=== PATIENT | male | born 1970 | race Caucasian/White ===

== ENCOUNTER 2017-10-19 08:13 | Emergency (ER) | payer SELFPAY ==
[~2017-10-19] VITALS: Ht 165.1 cm; Wt 73.7 kg
[2017-10-19] MEDS ORDERED: DIPHTH,PERTUSS(ACELL),TET TOX 0.5 ML DISP.SYRIN. VAX IM ONE (08:30)
[2017-10-19] MEDS ORDERED: KETOROLAC 30 MG/ML VIAL. IV ONE (08:30)
[2017-10-19] MEDS ORDERED: HYDROmorphone PF 2 MG/ML VIAL ONE (08:58)
[2017-10-19] MEDS ORDERED: HYDROmorphone PF 2 MG/ML VIAL IM ONE (09:00)
[2017-10-19 09:01] LABS: BASO # 0.1 x10^3/uL (0.0-0.2); BASO % 1 % (0-3); EOS # 0.2 x10^3/uL (0.0-0.7); EOS % 2 % (0-3); HEMATOCRIT 38.3 % (39.0-53.0); HEMOGLOBIN 12.9 g/dL (13.0-17.5); LYMPH # 1.4 x10^3/uL (1.0-4.8); LYMPH % 13 % (24-48); MEAN CORPUSCULAR HEMOGLOBIN 29 pg (25-35); MEAN CORPUSCULAR HGB CONC 34 g/dL (31-37); MEAN CORPUSCULAR VOLUME 86 fL (79-100); MONO # 1.2 x10^3/uL (0.0-1.1); MONO % 11 % (0-9); NEUT # 8.4 x10^3uL (1.8-7.7); NEUT % 74 % (31-73); PLATELET COUNT 392 x10^3/uL (140-400); RED BLOOD COUNT 4.44 x10^6/uL (4.30-5.70); RED CELL DISTRIBUTION WIDTH 12.7 % (11.5-14.5); WHITE BLOOD COUNT 11.3 x10^3/uL (4.0-11.0)
[2017-10-19 09:08] LABS: CALCIUM 9.5 mg/dL (8.5-10.1); CREATININE 0.7 mg/dL (0.7-1.3); GFR 122.5
[2017-10-19 09:10] LABS: POTASSIUM 4.2 mmol/L (3.5-5.1)
[2017-10-19] MEDS ORDERED: CLINDAMYCIN 900MG PREMIX 50 ML IV ONE (09:15)
[2017-10-19] MEDS ORDERED: LIDOCAINE 1% Multi-Dose 20 ML VIAL. IJ ONE (09:15)
--- NOTE | 2017-10-19 09:20 | PHYS DOC ---
Past History Past Medical History: No Pertinent History Smoking: Non-smoker Alcohol Use: None Drug Use: None Adult General Chief Complaint Chief Complaint: LOWER EXT PAIN HPI HPI 46-year-old male patient without history of medical problems complaining of left knee erythema and pain and edema for one week and drainage of pus for the last 2 days with severe pain of his knee and limited range of flexion because of pain. Patient denies fever and chills, focal neuro deficit, injury, history of MRSA. Review of Systems Review of Systems Constitutional: Denies fever or chills [] Eyes: Denies change in visual acuity, redness, or eye pain [] HENT: Denies nasal congestion or sore throat [] Respiratory: Denies cough or shortness of breath [] Cardiovascular: No additional information not addressed in HPI [] GI: Denies abdominal pain, nausea, vomiting, bloody stools or diarrhea [] : Denies dysuria or hematuria [] Musculoskeletal: Denies back pain , reports joint pain [] Integument: Denies rash, reports skin erythema and abscess Neurologic: Denies headache, focal weakness or sensory changes [] Endocrine: Denies polyuria or polydipsia [] All other systems were reviewed and found to be within normal limits, except as documented in this note. Current Medications Current Medications Current Medications Medications (Trade) Dose Ordered Sig/Latia Start Time Stop Time Status Last Admin Dose Admin Clindamycin Phosphate 50 ml @ 100 mls/hr 1X ONCE 10/19/17 09:15 10/19/17 09:44 Diphtheria/ Tetanus/Acell Pertussis (Boostrix) 0.5 ml ONCE ONCE 10/19/17 08:30 10/19/17 09:00 DC Hydromorphone HCl (Dilaudid) 2 mg 1X ONCE 10/19/17 09:00 10/19/17 09:03 DC 10/19/17 09:02 2 MG Ketorolac Tromethamine (Toradol) 30 mg 1X ONCE 10/19/17 08:30 10/19/17 08:59 DC 10/19/17 08:51 30 MG Lidocaine HCl 20 ml 1X ONCE 10/19/17 09:15 10/19/17 09:16 DC Allergies Allergies Allergies Coded Allergies Type Severity Reaction Last Updated Verified No Known Drug Allergies 10/19/17 No Physical Exam Physical Exam Constitutional: Well developed, well nourished, moderate distress, non-toxic appearance. [] HENT: Normocephalic, atraumatic Eyes: PERRLA, EOMI, conjunctiva normal, no discharge. [] Neck: Normal range of motion, no tenderness, supple, no stridor. [] Cardiovascular:Heart rate regular rhythm, no murmur [] Lungs & Thorax: Bilateral breath sounds clear to auscultation [ Skin: Warm, dry, no erythema, no rash. Left knee abscess[] Back: No tenderness, no CVA tenderness. [] Extremities: Large area of erythema and central fluctuation with pulse drainage on left knee skin with moderate tenderness without sign of septic joint, no neurovascular deficit Neurologic: Alert and oriented X 3, normal motor function, normal sensory function, no focal deficits noted. [] Psychologic: Affect normal, judgement normal, mood normal. [] Current Patient Data Vital Signs Vital Signs Date Time Temp Pulse Resp B/P (MAP) Pulse Ox O2 Delivery O2 Flow Rate FiO2 10/19/17 09:02 18 98 Room Air Lab Results Laboratory Tests Test 10/19/17 08:40 White Blood Count 11.3 x10^3/uL (4.0-11.0) H Red Blood Count 4.44 x10^6/uL (4.30-5.70) Hemoglobin 12.9 g/dL (13.0-17.5) L Hematocrit 38.3 % (39.0-53.0) L Mean Corpuscular Volume 86 fL (79-100) Mean Corpuscular Hemoglobin 29 pg (25-35) Mean Corpuscular Hemoglobin Concent 34 g/dL (31-37) Red Cell Distribution Width 12.7 % (11.5-14.5) Platelet Count 392 x10^3/uL (140-400) Neutrophils (%) (Auto) 74 % (31-73) H Lymphocytes (%) (Auto) 13 % (24-48) L Monocytes (%) (Auto) 11 % (0-9) H Eosinophils (%) (Auto) 2 % (0-3) Basophils (%) (Auto) 1 % (0-3) Neutrophils # (Auto) 8.4 x10^3uL (1.8-7.7) H Lymphocytes # (Auto) 1.4 x10^3/uL (1.0-4.8) Monocytes # (Auto) 1.2 x10^3/uL (0.0-1.1) H Eosinophils # (Auto) 0.2 x10^3/uL (0.0-0.7) Basophils # (Auto) 0.1 x10^3/uL (0.0-0.2) Sodium Level 137 mmol/L (136-145) Potassium Level 4.2 mmol/L (3.5-5.1) Chloride Level 101 mmol/L (98-107) Carbon Dioxide Level 27 mmol/L (21-32) Anion Gap 9 (6-14) Blood Urea Nitrogen 9 mg/dL (8-26) Creatinine 0.7 mg/dL (0.7-1.3) Estimated GFR (Cockcroft-Gault) 122.5 Glucose Level 165 mg/dL (70-99) H Lactic Acid Level 1.1 mmol/L (0.4-2.0) Calcium Level 9.5 mg/dL (8.5-10.1) EKG EKG [] Radiology/Procedures Radiology/Procedures Knee x-ray interpreted by me and did not show[ sign of acute finding] Course & Med Decision Making Course & Med Decision Making Pertinent Labs and Imaging studies reviewed. (See chart for details) Evaluation of patient in ER showed 46-year-old male patient with a large abscess on left knee skin that was drained and packing was placed and patient treated with Toradol, Dilaudid and clindamycin and prescription for Bactrim and [place] was given and patient instructed to return to ER in 48 hours for removing the packing. Patient had blood sugar of 165 and stated he was fasting and instructed to follow with a primary care physician for checking his blood sugar. Dragon Disclaimer Dragon Disclaimer This electronic medical record was generated, in whole or in part, using a voice recognition dictation system. Incision and Drainage Indication: [Left knee abscess] Procedure: The patient was positioned appropriately and the skin over the incision site was [PREP FOR PROCEDURE:]. Local anesthesia was [1% lidocaine:]. An incision was then made over the [knee abscess:] and [large amount of pus ] material was expressed. Loculations were [removed] and irrigation with large amount of normal saline was done. The drainage cavity was then [packed with 1/4 inch iodoform packing:]. The patients tetanus status [not up-to-date and tetanus shot was given in ER]. The patient tolerated the procedure [well]. noneCOMPLICATIONS:] Departure Departure: Impression: Primary Impression: Abscess of left knee Disposition: HOME, SELF-CARE (At 1010) Condition: IMPROVED Referrals: PCP,NO (PCP) Patient Instructions: Abscess, Care After, Community-Associated MRSA, Hyperglycemia Additional Instructions: Return to emergency room in 2 days for removing the packing Drink plenty of liquids Follow-up with your primary care physician in 3-5 days Return to ER if not getting better Scripts Ibuprofen (IBUPROFEN) 800 Mg Tablet 1 TAB PO TID, #30 TAB Prov: BEBA ADEN MD 10/19/17 Hydrocodone Bit/Acetaminophen (NORCO 5-325 TABLET) 1 Each Tablet 1 TAB PO PRN Q6HRS Y for PAIN, #14 TAB 0 Refills Prov: BEBA ADEN MD 10/19/17 Sulfamethoxazole/Trimethoprim (BACTRIM DS TABLET) 1 Each Tablet 1 TAB PO BID, #20 TAB Prov: BEBA ADEN MD 10/19/17 BEBA ADEN MD Oct 19, 2017 09:20
[2017-10-19] MEDS ORDERED: IBUP800T19 PO (10:06)
[2017-10-19] MEDS ORDERED: HYDR-971 PO (10:06)
[2017-10-19] MEDS ORDERED: SULF1TAB24 PO (10:06)
[2017-10-19 10:21] VITALS: BP 161/75
--- NOTE | 2017-10-20 07:45 | RAD ---
Left knee, 3 views, 10/19/2017: History: Knee abscess No fracture or dislocation is identified. No destructive bony lesion is seen. No large joint effusion is evident. IMPRESSION: No significant left knee abnormality is detected.
== END 2017-10-19 10:21 | disposition home or self-care (01) ==
LOC: ER 08:13
DX: L02.416 Cutaneous abscess of left lower limb (principal)
CPT/HCPCS: 10060; 36415; 73562; 80048; 83605; 85025; 87070; 87186; 90471; 90715; 96365; 96372; 96375; 99285; J1170; J1885; J3490

== ENCOUNTER 2017-10-21 07:30 | Emergency (ER) | payer SELFPAY ==
[~2017-10-21] VITALS: Ht 165.1 cm; Wt 73.7 kg
[~2017-10-21 07:30] MED LIST: HYDR-971 PO; IBUP800T19 PO; SULF1TAB24 PO
--- NOTE | 2017-10-21 08:16 | PHYS DOC ---
Past History Past Medical History: No Pertinent History Past Surgical History: No Surgical History Smoking: Non-smoker Alcohol Use: None Drug Use: None Adult General Chief Complaint Chief Complaint: WOUND CHECK [facility] Patient is a 46 year old male who presents to the emergency department for a wound recheck. The patient had an incision and drainage of an abscess on his left knee 2 days ago in the emergency department. Packing material was placed at that time and patient was treated with 1 dose of IV clindamycin and continued on outpatient therapy with Bactrim. Patient states that his symptoms have been improving. The redness has improved. The patient states that he has had discomfort which she attributes to the packing was placed in the knee prior. Patient otherwise states that he has had no fevers and has been slowly improving. The patient does not have a primary care doctor which is why he came to the emergency department for recheck of his wound. Review of Systems Review of Systems Constitutional: Denies fever or chills [] Eyes: Denies change in visual acuity, redness, or eye pain [] HENT: Denies nasal congestion or sore throat [] Respiratory: Denies cough or shortness of breath [] Cardiovascular: No additional information not addressed in HPI [] GI: Denies abdominal pain, nausea, vomiting, bloody stools or diarrhea [] : Denies dysuria or hematuria [] Musculoskeletal: Left knee abscess[] Integument: Denies rash or skin lesions [] Neurologic: Denies headache, focal weakness or sensory changes [] All other systems were reviewed and found to be within normal limits, except as documented in this note. Allergies Allergies Allergies Coded Allergies Type Severity Reaction Last Updated Verified No Known Drug Allergies 10/19/17 No Physical Exam Physical Exam Constitutional: Alert, afebrile, appears in minimal discomfort. [] HENT: Normocephalic, atraumatic, bilateral external ears normal, oropharynx moist, no oral exudates, nose normal. [] Eyes: PERRLA, EOMI, conjunctiva normal, no discharge. [] Neck: Normal range of motion, no tenderness, supple, no stridor. [] Cardiovascular:Heart rate regular rhythm, no murmur [] Lungs & Thorax: Bilateral breath sounds clear to auscultation [] Abdomen: Bowel sounds normal, soft, no tenderness, no masses, no pulsatile masses. [] Skin: Warm, dry, no erythema, no rash. [] Back: No tenderness, no CVA tenderness. [] Extremities: 3.5 cm diameter area of erythema surrounding incision site with packing still in place along medial aspect of left knee, minimal surrounding tenderness, no joint space tenderness, no cyanosis, no clubbing, ROM intact, no edema. [] Neurologic: Alert and oriented X 3, normal motor function, normal sensory function, no focal deficits noted. [] EKG EKG Not performed[] Radiology/Procedures Radiology/Procedures Not performed[] Course & Med Decision Making Course & Med Decision Making Pertinent Labs and Imaging studies reviewed. (See chart for details) The patient's abscess appears to be improving and healing at this time. Previous packing material was removed and the patient's abscess cavity was repacked with 0.5 inch iodoform gauze. The knee was redressed with gauze and Dudley bandage. Patient was provided crutches to assist with ambulation. Patient referred to both primary care and to the wound care center at [facility] in [place], [place]. Advise follow-up in 2 days for reevaluation. Advised return emergency department for any worsening symptoms. Patient voiced understanding and in agreement with treatment plan.[] Dragon Disclaimer Dragon Disclaimer This electronic medical record was generated, in whole or in part, using a voice recognition dictation system. Departure Departure: Impression: Primary Impression: Visit for wound check Disposition: 01 HOME, SELF-CARE Condition: IMPROVED Referrals: PCP,MIA (PCP) Patient Instructions: Incision and Drainage, Care After, Wound Care, Easy-to- Read Additional Instructions: Continue your antibiotics as prescribed at your previous visit. You'll be referred to both a primary care physician and to the wound care clinic at [facility] in [place], [place]. It is recommended that you follow- up in the next 2 days for reevaluation of your wound. Return to the emergency department for any worsening symptoms. ILDA SANTOS MD Oct 21, 2017 08:16
[2017-10-21 08:30] VITALS: BP 122/70
== END 2017-10-21 08:30 | disposition home or self-care (01) ==
LOC: ER 07:30
DX: L02.416 Cutaneous abscess of left lower limb (principal)
CPT/HCPCS: 99283